=== PATIENT | male | born 2005 | race Caucasian/White ===

== ENCOUNTER 2024-04-17 18:00 | Emergency (ER) | payer SELFPAY ==
[2024-04-17 18:02] VITALS: BP 124/55; PULSE 84; RESP 18; TEMP 35.9; O2SAT 97
--- NOTE | 2024-04-17 18:15 | RAD_ITS ---
EXAM: XR LEFT ANKLE COMPLETE, 3 OR MORE VIEWS CLINICAL INDICATION: pain TECHNIQUE: Frontal, lateral and oblique views of the left ankle. COMPARISON: No relevant prior studies available. FINDINGS: BONES/JOINTS: No significant abnormality. No acute fracture. No subluxation. Normal alignment. Preservation of the joint space. No sclerotic or destructive changes observed. SOFT TISSUES: Soft tissue swelling mostly laterally. No radiopaque foreign body. RAD/Ankle min 3 Views IMPRESSION: Soft tissue swelling mostly laterally. No acute fracture or dislocation. Electronically Signed: Enio Irene DO at 18:31 EDT ,
--- NOTE | 2024-04-17 19:14 | EX.ED.DYSGE1 ---
HPI <KARON Vaz - Last Filed: 04/17/24 19:18> History of Present Illness Chief Complaint: Lower Extremity Injury Narrative Narrative: 18-year-old male with no significant ankle history presents to the emerged department after rolling his left ankle. Pay states he was walking and going up a curb when his ankle rolled inward. This happened 30 minutes prior to arrival. Patient not take any ibuprofen and Tylenol. He states he is concerned he broke it <Dr. Austin Arndt DO - Last Filed: 04/17/24 19:28> Narrative Narrative: 18-year-old male with no significant ankle history presents to the emerged department after rolling his left ankle. Pt states he was walking and going up a curb when his ankle rolled inward. This happened 30 minutes prior to arrival. Patient not take any ibuprofen and Tylenol. He states he is concerned he broke it PFSH <KARON Vaz - Last Filed: 04/17/24 19:18> PFSH Home Medications ?Medication ?Instructions ?Recorded ?Last Taken ?Type ibuprofen 600 mg tablet 600 mg PO Q6H PRN PRN pain #20 04/17/24 Unknown Rx TABLETS Allergy/AdvReac Type Severity Reaction Status Date / Time No Known Allergies Allergy Verified 04/17/24 18:01 Social History Smoking Status: Never smoker ROS <KARON Vaz - Last Filed: 04/17/24 19:18> ROS ED ROS Narrative Constitutional: Negative for fever, chills, weight loss, weakness Eyes: Negative for vision loss, vision change, double vision ENT: Negative for any sore throat, ear pain, congestion Cardiovascular: Negative for any chest pain, tightness, palpitations Respiratory: Negative for any cough, sputum production, hemoptysis, dyspnea, dyspnea on exertion, orthopnea Gastrointestinal: Negative for any abdominal pain, nausea, vomiting, diarrhea, constipation, blood in stool, blood in vomit : Negative for any urinary frequency, dysuria, retention, blood in urine Muscle skeletal: Negative for any neck pain, back pain. Positive left ankle pain Neurological: Negative for any headache, syncope, dizziness Skin: Negative for any rashes, itching, abrasions, lacerations Psychiatric: Negative for any depression, anxiety, stress, suicidal ideation, homicidal ideation Hematologic: Negative for any excessive bruising, easy bleeding EXAM <KARON Vaz - Last Filed: 04/17/24 19:18> Physical Exam Narrative Exam Narrative: Vital signs reviewed. Extremities: Patient has lateral edema, slight ecchymosis. No pain along the fifth metatarsal. Patient is able to flex and extend without any difficulty. Neuro: Cranial nerves II through XII intact, no focal neurological deficits. Skin: Clean dry and intact with no rash, purpura, petechiae, vesicles or pustules. Backs/flank: No CVA tenderness, no midline spinal tenderness, no deformity. Psych: Normal mood and affect. No SI, HI or acute psychosis. Const Vital Signs: 04/17/24 18:02 Temperature 96.7 F L Temperature Source Temporal Pulse Rate 84 Respiratory Rate 18 Blood Pressure 124/55 H Blood Pressure Mean 78 Pulse Ox 97 Oxygen Delivery Method Room Air Positive well nourished and well developed General Appearance ED: well developed <Dr. Austin rAndt DO - Last Filed: 04/17/24 19:28> Physical Exam Const Vital Signs: 04/17/24 18:02 Temperature 96.7 F L Temperature Source Temporal Pulse Rate 84 Respiratory Rate 18 Blood Pressure 124/55 H Blood Pressure Mean 78 Pulse Ox 97 Oxygen Delivery Method Room Air MDM <KARON Vaz - Last Filed: 04/17/24 19:18> MDM Radiography Diagnostic Testing: Clinical Impression(s) from Imaging Studies Ankle X-Ray 04/17/24 18:15 IMPRESSION: Soft tissue swelling mostly laterally. No acute fracture or dislocation. Electronically Signed: Enio Irene DO at 18:31 EDT , Treatment and Re-Evaluation :: Differential diagnosis includes however is not limited to: Ankle sprain, ankle fracture, fifth metatarsal fracture Patient appears to be in no obvious distress vital signs are stable, patient is nontoxic-appearing. Presenting to the emergency department with complaints of left ankle pain after stepping off a curb and rolling his ankle. X-rays were obtained of the left ankle, this showed some soft tissue swelling mostly laterally, no acute fracture or dislocation. Patient be placed in an ankle stirrup, he will be given crutches, and work note. He will be given a prescription for ibuprofen and instructed return for any worsening symptoms. <Dr. Austin Arndt DO - Last Filed: 04/17/24 19:28> MDM Radiography Diagnostic Testing: Clinical Impression(s) from Imaging Studies Ankle X-Ray 04/17/24 18:15 IMPRESSION: Soft tissue swelling mostly laterally. No acute fracture or dislocation. Electronically Signed: Enio IreneDO at 18:31 EDT , Treatment and Re-Evaluation :: Differential diagnosis includes however is not limited to: Ankle sprain, ankle fracture, fifth metatarsal fracture Patient appears to be in no obvious distress vital signs are stable, patient is nontoxic-appearing. Presenting to the emergency department with complaints of left ankle pain after stepping off a curb and rolling his ankle. X-rays were obtained of the left ankle, this showed some soft tissue swelling mostly laterally, no acute fracture or dislocation. Patient be placed in an ankle stirrup, he will be given crutches, and work note. He will be given a prescription for ibuprofen and instructed return for any worsening symptoms. ED attending note: I evaluated the patient in conjunction with the JENNIFER. I agree with his/her statements and above findings. I have personally performed a face to face assessment of the patient and have reviewed the JENNIFER Note. I performed a substantive portion of the visit including all aspects of the following. I personally saw the patient performed chart review, physical exam, reviewed labs, imaging (if obtained), and formulated a treatment and management plan. Patient had mechanical ankle sprain. X-ray was read reviewed person myself showed no evidence of obvious fracture dislocation. Pulses are intact compartments are soft. Patient appropriate discharge home with instructions to take Tylenol ibuprofen, keep ankle elevated, keep ankle compressed to perform progressive mobilization exercises to improve healing and expedite return to usual activity and quality of life. This note was generated with [employer] software. It may contain incorrect words, spelling, and punctuation that were not noted in review of the chart prior to signing. Discharge Plan Triage Chief Complaint: Lower Extremity Injury ED Midlevel Provider: Felipe Pop ED Provider: Austin Arndt Dx/Rx/DC Orders Clinical Impression: Ankle sprain Instructions: ED Bandage Elastic Wrap, ED Ankle Sprain (Adult) Prescriptions: New ibuprofen 600 mg tablet 600 mg PO Q6H PRN PRN (Reason: pain) Qty: 20 0RF Activity Restrictions/Additional Instructions: Ensure to ice, elevate, use the ibuprofen as needed. Print Language: Polish Disposition Disposition: Home, Self Care
[2024-04-17] MEDS: Ibuprofen 600 MG Tablet PO (19:45)
[2024-04-17 19:48] VITALS: BP 126/65; PULSE 70; RESP 18; TEMP 36.7; O2SAT 100
== END 2024-04-17 19:49 | disposition home or self-care (01) ==
PROVIDERS: Emergency Provider Emergency Medicine; Visit Provider Emergency Medicine
DX: S93.402A Sprain of unspecified ligament of left ankle, initial encounter (principal); X58.XXXA Exposure to other specified factors, initial encounter
CPT/HCPCS: 73610; 99284